=== PATIENT | female | born 1980 | race Hispanic/Latino ===

== ENCOUNTER 2022-08-25 15:41 | Emergency (ER) | payer BC, SELFPAY ==
[2022-08-25 15:56] VITALS: BP 151/95; PULSE 66; RESP 16; TEMP 36.2; O2SAT 99
--- NOTE | 2022-08-25 16:20 | ED.GENADULT ---
HPI - General Adult General Chief complaint: Ear Stated complaint: bilateral ear pain,congestion Time Seen by Provider: 08/25/22 16:20 Source: patient, RN notes reviewed and old records reviewed Mode of arrival: ambulatory Limitations: no limitations History of Present Illness HPI narrative: 42-year-old female presents to express care with cough, head congestion, bilateral ear pain since before . patient reports she is unsure she has had any fevers states that sinus drainage at times is blood-tinged yellow she has also had some postnasal drainage with cough. Patient states she has been taking Vicks cold and flu for her symptoms.Patient does take Zyrtec daily. Patient reports she has had COVID vaccinations and 1 booster and has not yet had flu shot. Patient reports she did have COVID November of 2021. MD complaint: bilateral ear pain, sinus drainage cough since before Onset (ago): day(s) (10) Treatments prior to arrival: other (Zyrtec) Related Data Allergies Allergy/AdvReac Type Severity Reaction Status Date / Time amoxicillin Allergy Unknown Verified 08/25/22 16:30 Review of Systems Review of Systems: CONSTITUTIONAL: malaise, chills, sweats, or fever. EYES: Denies visual changes, redness, or discharge. ENT: Reports rhinorrhea, congestion, sinus pain, otalgia no sore throat. CARDIOVASCULAR: Denies chest pain, palpitations, or edema. RESPIRATORY: Reports cough.? Denies dyspnea. GASTROINTESTINAL: Denies abdominal pain, nausea, vomiting, diarrhea SKIN: Denies rash or itching. MUSCULOSKELETAL: Denies myalgia. NEUROLOGIC: Denies headache. All systems reviewed & are unremarkable except as noted in HPI and below PMFSH Past Medical History Medical History (Updated 08/26/22 @ 00:01 by Colin Live) COVID-08 December 2021 Sinus problem Social History Social History (Updated 08/25/22 @ 16:48 by Odessa Castro NP) Smoking status: Never smoker Alcohol intake: current Alcohol use details: social Substance use type: does not use Gender identity (if verbalized by the patient): Female Comments At time of signature, agree with nursing past medical, surgical, social and family history. There is no relevant family history pertinent to the presenting complaint Exam Narrative: GENERAL: Well-appearing, well-nourished, and in no acute distress. HEAD: Normocephalic EYES: PERRLA, conjunctivae clear ENT: Nares clear, turbinates edematous and erythematous, yellow mucous discharge. Mucous membranes moist. TM pearly resendez with dull light reflex bilaterally; no tragal tenderness. Oropharynx erythematous without lesions. Tonsils not enlarged and without exudate, no drooling, no hoarseness, no trismus, uvula midline. NECK: Supple. No lymphadenopathy CHEST: Clear to auscultation, breath sounds equal. No wheezing, rhonchi, rales, or stridor. No respiratory distress, speaks in full sentences. cough noted with SAO2 99% on room air HEART: Regular rate and rhythm. No murmur heard. SKIN: Warm, dry, no rash. NEURO: Alert and oriented x3. PSYCH: Normal mood and affect Course Course Emergency Course: Patient is aware of diagnosis, understands and agrees to treatment plan.? Anticipatory guidance given.? Patient agrees to follow-up as directed and is aware of reasons to seek care at the emergency department. Portions of this record may have been created with voice recognition software Level of Care: Express Care Visit Vital Signs Vital signs: Vital Signs Temperature 36.2 C L 08/25/22 15:56 Pulse Rate 66 08/25/22 15:56 Respiratory Rate 16 08/25/22 15:56 Blood Pressure 151/95 H 08/25/22 15:56 Pulse Oximetry 99 08/25/22 15:56 Temperature 36.2 C L 08/25/22 15:56 Pulse Rate 66 08/25/22 15:56 Respiratory Rate 16 08/25/22 15:56 Blood Pressure 151/95 H 08/25/22 15:56 Pulse Oximetry 99 08/25/22 15:56 Reviewed Medical Decision Making Differential Di
== END 2022-08-25 16:40 | disposition home or self-care (01) ==
PROVIDERS: Emergency Provider Registered Nurse
DX: J32.9 Chronic sinusitis, unspecified (principal); Z86.16 Personal history of COVID-19
CPT/HCPCS: 99213; G0463

== ENCOUNTER 2023-03-14 07:57 | Outpatient (CLI) | payer BC, SELFPAY ==
[2023-03-14 10:51] LABS: Kit Draw Collected
== END 2023-03-14 07:58 | disposition home or self-care (01) ==
LOC: ANHGOSHLAB 08:01
PROVIDERS: PCP Family Medicine; Visit Provider Family Medicine
DX: Z00.00 Encounter for general adult medical examination without abnormal findings (principal); E66.9 Obesity, unspecified
CPT/HCPCS: 36415

== ENCOUNTER 2024-01-13 08:00 | Outpatient (CLI) | payer BC, SELFPAY ==
[2024-01-13 13:30] LABS: Alanine Aminotransferase 18 U/L (6-35); Albumin Level 4.3 g/dL (3.5-5.1); Alkaline Phosphatase 56 U/L (38-126); Anion Gap 6 mmol/L (4-12); Aspartate Amino Transferase 53 U/L (14-36); Bilirubin,Total 0.4 mg/dL (0.2-1.3); Blood Urea Nitrogen 27 mg/dL (7-17); Calcium 9.1 mg/dL (8.4-10.2); Carbon Dioxide 26 mmol/L (22-30); Chloride 108 mmol/L (98-107); Cholesterol 234 mg/dL (0-200); Estimated Glomerular Filt Rate > 60; Glucose 85 mg/dL (65-110); HDL Direct 47 mg/dL; Potassium 4.6 mmol/L (3.4-5.0); Sodium 140 mmol/L (137-145); Triglycerides 106 mg/dL (<150)
[2024-01-13 13:41] LABS: LDL Cholesterol Direct 152 mg/dL
[2024-01-13 15:26] LABS: Hemoglobin A1C 5.2 % (<5.7)
[2024-01-17 08:23] LABS: Thyroid Peroxidase Antibodies 1 IU/mL (<9)
== END 2024-01-13 08:01 | disposition home or self-care (01) ==
LOC: ANHGOSHLAB 08:02
PROVIDERS: PCP Family Medicine; Visit Provider Family Medicine
DX: R79.89 Other specified abnormal findings of blood chemistry (principal); E66.9 Obesity, unspecified; Z68.39 Body mass index [BMI] 39.0-39.9, adult
CPT/HCPCS: 36415; 80053; 80061; 83036; 84443; 86376

== ENCOUNTER 2024-03-20 07:55 | Outpatient (CLI) | payer BC, SELFPAY ==
[2024-03-20 19:05] LABS: Alanine Aminotransferase 17 U/L (6-35); Albumin Level 4.1 g/dL (3.5-5.1); Alkaline Phosphatase 57 U/L (38-126); Aspartate Amino Transferase 29 U/L (14-36); Bilirubin,Total 0.3 mg/dL (0.2-1.3)
[2024-03-20 19:44] LABS: Hepatitis B Surface Antigen Negative (Negative)
[2024-03-20 19:50] LABS: HAV RESULT Negative (Negative); Hepatitis B Core IgM Result Negative (Negative)
[2024-03-20 20:02] LABS: Hepatitis C Virus Antibody Negative (Negative)
== END 2024-03-20 07:56 | disposition home or self-care (01) ==
LOC: ANHGOSHLAB 07:57
PROVIDERS: PCP Family Medicine; Visit Provider Family Medicine
DX: R79.89 Other specified abnormal findings of blood chemistry (principal)
CPT/HCPCS: 36415; 80074; 80076

== ENCOUNTER 2024-07-10 13:28 | Outpatient (CLI) | payer BC, SELFPAY ==
--- NOTE | ~2024-07-10 | MM_ITS ---
EXAMINATION: MM screening maximus BI w helen HISTORY: Screening mammogram TECHNIQUE: Craniocaudal and mediolateral oblique 3-D tomosynthesis images were obtained and synthetic 2-D images were generated. CAD analysis was submitted and interpreted. COMPARISON: No prior mammogram is available for comparison at this institution. BREAST PARENCHYMAL COMPOSITION:Not Dense. The breasts are almost entirely fatty FINDINGS: No suspicious mass, calcification, or architectural distortion are identified in either dick ast to suggest malignancy. There has been no suspicious interval change. IMPRESSION: No mammographic evidence of malignancy. Recommend routine screening mammography in one year. BI-RADS Category 1: Negative Reviewed, dictated and finalized at location . 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
== END 2024-07-10 13:29 | disposition home or self-care (01) ==
LOC: MICIMG 13:28
PROVIDERS: PCP Family Medicine; Visit Provider Family Medicine
DX: Z12.31 Encounter for screening mammogram for malignant neoplasm of breast (principal)
CPT/HCPCS: 77063; 77067

== ENCOUNTER 2024-08-09 00:06 | Day surgery (SDC) | payer BC, SELFPAY ==
[2024-08-01 11:00] VITALS: BMI 35.4
[2024-08-09 06:20] VITALS: BP 139/94; PULSE 71; RESP 16; TEMP 36.2; O2SAT 97
[2024-08-09 06:28] LABS: BEDSIDEPREGUCG Negative (Negative)
[2024-08-09] MEDS: LACTATED RINGERS 1,000 ML 150 ML IV CONT (06:28)
--- NOTE | 2024-08-09 07:15 | P.PNAN_ITS ---
Anes - Initial Pre Proc Eval Procedure: Operation Date: 08/09/24 07:30 Proposed Procedures p Screening Colonoscopy - Naveen Weiner DO Date/Time: 08/09/24 07:15 Surgeon: Naveen Weiner DO Pre Op Diagnosis: Screening for malignant neoplasm of colon Patient Data Age: 44 Gender: F Height: 1.6 m Weight: 101.4 kg Last Vital Signs Temp 36.2 C L 08/09/24 06:20 Pulse 71 08/09/24 06:20 Resp 16 08/09/24 06:20 BP 139/94 H 08/09/24 06:20 Pulse Ox 97 08/09/24 06:20 O2 Del Method Room Air 08/09/24 06:20 Allergies Allergy/AdvReac Type Severity Reaction Status Date / Time amoxicillin Allergy Unknown Verified 08/09/24 06:18 Home Medications ?Medication ?Instructions ?Recorded ?Confirmed ?Type COLLAGEN See Rx Instructions PO .COMPLEX 03/10/23 08/09/24 History VIVISCAL PO DAILY Hair growth supplement 03/10/23 04/25/24 History cetirizine 10 mg tablet (All Day 10 mg PO DAILY 03/10/23 08/09/24 History Allergy (cetirizine)) ibuprofen 200 mg capsule 400 mg PO DAILY 03/10/23 08/01/24 History levocarnitine 500 mg tablet 500 mg PO DAILY 03/10/23 08/09/24 History (L-Carnitine) magnesium 250 mg tablet 250 mg PO BID 03/10/23 08/09/24 History multivitamin 1 tablet PO DAILY 03/10/23 08/09/24 History omega-3 fatty acids-fish oil 360 1 cap PO BID 03/10/23 08/09/24 History mg-1,200 mg capsule (Fish Oil) spironolactone 50 mg tablet 50 mg PO DAILY #90 tabs 04/25/24 08/09/24 Rx Laboratory Tests 08/09/24 06:20 POC Urine HCG, Qual Negative (Negative) Patient hx anesthesia problems: none Family hx anesthesia problems: none Results Review: All pre-operative results and documents have been reviewed as part of the pre-operative evaluation. COUNT INCLUDES [facility] Past Medical History Medical History Sinus problem COVID-08 December 2021 Family History Family History Father Alcoholism Diabetes mellitus Cancer throat Sibling Diabetes mellitus Sibling Acute myocardial infarction Social History Social History Smoking status: Never smoker Alcohol intake: never Substance use: never Substance use type: does not use Do You Feel Safe in your Home?: Yes Lack of Transportation: No Lack of Food: Never True Current Housing: I Have Housing Concerned About Future Housing: No Difficulty Paying Gas/Electric Bills: No Difficulty Paying for Meds: No Education: Associate Degree Difficulty w/ Childcare or Family Care: No Gender identity (if verbalized by the patient): Female Spiritual care concerns: No Anes - Eval Final PreProcedure Day of Procedure 08/09/24 07:15 Patient weight: obese Heart: regular rate and rhythm Lungs: clear to auscultation Airway: Mallampati scale class II Neurological: alert and oriented Last oral intake: >/= 8 hours ASA classification: II Emergent: no Anesthetic plan: proceed Anesthesia type and monitoring: general GIVS and standard monitoring Results Review: All pre-operative results and documents have been reviewed as part of the pre- operative evaluation. Informed Consent: The patient's anesthetic plan and its attendant risks and benefits were discussed with the patient/family/POA. Questions were solicited and answers provided to the satisfaction of the patient/family/POA.
--- NOTE | 2024-08-09 07:26 | PM.IMHP ---
H&P: HPI History of Present Illness Date/Time: 08/09/24 07:26 Chief Complaint: Screening for colorectal cancer Narrative: this is a 44-year-old woman who presents for her 1st colonoscopy. She denies any hematochezia or melena. She denies any family history of colon cancer. Review of Systems Review of Systems: All systems reviewed & are unremarkable except as noted in HPI and below Constitutional: Constitutional: Denies chills, Denies fever(s), Denies headache(s) and Denies weight loss Eyes: Eyes: Denies change in vision ENT: Denies dizziness, Denies headache(s), Denies neck mass and Denies throat swelling Cardiovascular: Cardiovascular: Denies chest pain, Denies lightheadedness and Denies dyspnea Respiratory: Respiratory: Denies cough, Denies dyspnea and Denies wheezing Gastrointestinal: Gastrointestinal: Denies abdominal pain, Denies change in bowel habits, Denies nausea and Denies vomiting Genitourinary: Genitourinary: Denies hematuria and Denies dysuria Musculoskeletal: Musculoskeletal: Reports as per HPI Integumentary/Breasts: Skin/Breast: Reports as per HPI Neurologic: Denies dizziness and Denies headache(s) Allergic/Immunologic: Allergic/Immunologic: Denies throat swelling and Denies wheezing PMF Past Medical History Medical History COVID-08 December 2021 Sinus problem Family History Family History Father Alcoholism Diabetes mellitus Cancer throat Sibling Diabetes mellitus Sibling Acute myocardial infarction Social History Social History Smoking status: Never smoker Alcohol intake: never Substance use: never Substance use type: does not use Do You Feel Safe in your Home?: Yes Lack of Transportation: No Lack of Food: Never True Current Housing: I Have Housing Concerned About Future Housing: No Difficulty Paying Gas/Electric Bills: No Difficulty Paying for Meds: No Education: Associate Degree Difficulty w/ Childcare or Family Care: No Gender identity (if verbalized by the patient): Female Spiritual care concerns: No Meds Home Medications and Allergies Home Medications ?Medication ?Instructions ?Recorded ?Confirmed ?Type COLLAGEN See Rx Instructions PO .COMPLEX 03/10/23 08/09/24 History VIVISCAL PO DAILY Hair growth supplement 03/10/23 04/25/24 History cetirizine 10 mg tablet (All Day 10 mg PO DAILY 03/10/23 08/09/24 History Allergy (cetirizine)) ibuprofen 200 mg capsule 400 mg PO DAILY 03/10/23 08/01/24 History levocarnitine 500 mg tablet 500 mg PO DAILY 03/10/23 08/09/24 History (L-Carnitine) magnesium 250 mg tablet 250 mg PO BID 03/10/23 08/09/24 History multivitamin 1 tablet PO DAILY 03/10/23 08/09/24 History omega-3 fatty acids-fish oil 360 1 cap PO BID 03/10/23 08/09/24 History mg-1,200 mg capsule (Fish Oil) spironolactone 50 mg tablet 50 mg PO DAILY #90 tabs 04/25/24 08/09/24 Rx Allergies Allergy/AdvReac Type Severity Reaction Status Date / Time amoxicillin Allergy Unknown Verified 08/09/24 06:18 Vital Signs Vital Signs - 24 hr 08/09/24 06:20 Temperature 97.2 F L Pulse Rate 71 Respiratory Rate 16 Blood Pressure 139/94 H Pulse Oximetry 97 Oxygen Delivery Room Air Exam Const: General: no acute distress and alert Orientation/consciousness: patient oriented x3 HENMT: Head: normocephalic and atraumatic Ears: hearing grossly normal bilaterally Face/Nose/Sinus: Normal nares present Mouth: Yes Normal oral and palatal mucosa present Eyes: Periorbital: periorbital findings normal Sclera: sclerae normal EOM: EOMs intact bilaterally Neck: Neck: normal visual inspection, no lymphadenopathy and trachea midline Chest: Chest palpation & inspection: normal inspection of the chest Resp: Effort & Inspection: normal respiratory effort Auscultation: clear to auscultation bilaterally Cardio: Jugular venous distension: no JVD Rate: regular rate Rhythm: regular rhythm Heart sounds: S1 normal heart sound present and S2 normal heart sound present Peripheral pulses: Peripheral pulses 2+ throughout GI: Inspection: normal to inspection GI Palp: Yes Soft to palpation, No Tenderness to palpation present (GI), No Guarding due to palpation present (GI) and No Rebound tenderness present Percussion: Yes normal to percussion Auscultation: normal bowel sounds : General: Yes no CVA tenderness Back/Spine/Pelvis: Back: no CVA tenderness Neuro: General: patient oriented x3, no focal motor deficits and CN's II-XI intact bilaterally Cognition (Neuro): normal cognition Speech: normal speech Motor exam (neuro): 5/5 motor strength present throughout Extrem: General: capillary refill normal and no clubbing, cyanosis or edema Assessment and Plan Assessment and plan (1) Screening for colorectal cancer: Code(s): Z12.11 - Encounter for screening for malignant neoplasm of colon; Z12.12 - Encounter for screening for malignant neoplasm of rectum Status: Acute Assessment and Plan: I have recommended colonoscopy. I have discussed the procedure, risks, benefits, and alternatives. Questions were answered. Patient is agreeable to proceed.
[2024-08-09 07:45] VITALS: BP 100/74; PULSE 63; RESP 16; O2SAT 98
[2024-08-09 07:55] VITALS: BP 87/32; PULSE 60; RESP 16; O2SAT 96
[2024-08-09 08:05] VITALS: BP 108/80; PULSE 60; RESP 16; O2SAT 100
== END 2024-08-09 08:14 | disposition home or self-care (01) ==
PROVIDERS: Anesthesiology; PCP Family Medicine; Visit Provider Surgery
PROC: 0DJD8ZZ Inspection of Lower Intestinal Tract, Via Natural or Artificial Opening Endoscopic (ICD-10-PCS; CPT 45378; principal; 2024-08-09 07:30)
DX: Z12.11 Encounter for screening for malignant neoplasm of colon (principal); E66.9 Obesity, unspecified; Z68.39 Body mass index [BMI] 39.0-39.9, adult; Z79.1 Long term (current) use of non-steroidal anti-inflammatories (NSAID); Z80.1 Family history of malignant neoplasm of trachea, bronchus and lung; Z82.49 Family history of ischemic heart disease and other diseases of the circulatory system
CPT/HCPCS: 45378; J2704; J7120

== ENCOUNTER 2025-05-17 08:06 | Outpatient (CLI) | payer BC, SELFPAY ==
--- OUTSIDE RECORDS SUMMARY | 2025-05-17 08:09 | XMS_ITS | Clinical Summary ---
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 Medications meloxicam (Mobic) 15 mg tabletIndications: Medial epicondylitis of elbow, right,Lateral epicondylitis of right elbow,Tendinopathy of elbow, right Take 1 Tablet (15 mg) by mouth daily. Take with a meal. 30 Tablet 1 0 Active Active Problems No known active problems Immunizations Immunization Administration Dates Next Due ([employer])(12 YR UP) COVID-19 VACCINE - EMERGENCY USE AUTHORIZATION, MRNA, [id number](PF) 30 MCG/0.3 ML IM SUSP 12/23/2020,12/01/2020 INFLUENZA VACCINE QUADRIVALENT 6 MOS UP PF IM Influenza Seasonal Unspecified Formulation IM Family History Medical History Relation Name Comments Diabetes Brother Hypertension Brother Cancer Father Relation Name Status Comments Brother Father Social History Tobacco Use Types Packs/Day Years Used Date Smoking Tobacco: Never Smokeless Tobacco: Never Alcohol Use Standard Drinks/Week Comments Yes 0 (1 standard drink = 0.6 oz pur e alcohol) MODERATE Comments No Sex and Gender Information Value Date Recorded Sex Assigned at Not on file 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 Gender Identity Not on file Sexual Orientation Not on file Last Filed Vital Signs Vital Sign Reading Time Taken Comments Blood Pressure 121/75 10/31/2019 8:07 AM CDT Pulse 72 10/31/2019 8:07 AM CDT Temperature 35.3 C (95.5 F) 06/04/2020 1:56 PM CDT Respiratory Rate - - Oxygen Saturation 95% 10/31/2019 8:07 AM CDT Inhaled Oxygen Concentration - - Weight 96.9 kg (213 lb 9.6 oz) 10/31/2019 8:07 A M CDT Height 160 cm (5' 3) 06/04/2020 1:56 PM CDT Body Mass Index 37.84 10/31/2019 8:07 AM CDT Plan of Treatment Health Maintenance Due Date Last Done Comments DTAP/TDAP/TD VACCINES (1 - Tdap) 1998 HEPATITIS B VACCINES (1 of 3 - 19+ 3-dose series) 1998 HPV/Cotest (21-29) 2000 CERVICAL CANCER SCREENING 2009 HPV/Cotest (30-65) 2009 PAP SMEAR 2009 BREAST CANCER SCREENING 2019 COLORECTAL SCREENING 2024 Colorectal Cancer Screening 2024 FIT-DNA Q 3 years 2024 FIT/FOBT Q 1 year 2024 Flex Sig/CT Colonography Q 5 years 2024 Preventative Visit- Commercial 08/22/2024 04/27/2019, 12/18/2018 INFLUENZA VACCINE (#1) 2025 0, 05/29/2019 COVID-19 Vaccine (3 - 2024-2 6 season) 2025 12/23/2020, 12/01/2020 HPV VACCINES Aged Out No longer eligi ble based on patient's age to complete [place] [address] BCBS BLUE ACCESS/TRUE BLUE PPO RX [facility] 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
[2025-05-17 18:10] LABS: Hematocrit 40.9 % (37.0-47.0); Hemoglobin 13.3 g/dL (12.0-15.0); Immature Granulocyte Percent A 0.4 % (0-0.5); Lymphocytes Absolute Auto 1.77 K/mm3 (0.9-3.2); Mean Corpuscular HGB Conc 32.5 g/dl (32-36); Mean Corpuscular Hemoglobin 31.5 pg (26-34); Mean Corpuscular Volume 96.9 fl (80-100); Nucleated Red Blood Cells Absolute Auto 0.000 K/mm3 (0.0-0.012); Nucleated Red Blood Cells Perc 0.0 % (0.0-0.2); Platelet Count Result 285 k/mm3 (150-375); Red Blood Count 4.22 M/mm3 (4.2-5.4); White Blood Count 10.2 K/mm3 (4.5-10.0)
[2025-05-17 18:13] LABS: Hemoglobin A1C 5.6 % (<5.7)
[2025-05-17 18:31] LABS: Alanine Aminotransferase 27 U/L (6-35); Albumin Level 4.2 g/dL (3.5-5.1); Alkaline Phosphatase 67 U/L (38-126); Anion Gap 6 mmol/L (4-12); Aspartate Amino Transferase 39 U/L (14-36); Bilirubin,Total 0.4 mg/dL (0.2-1.3); Blood Urea Nitrogen 14 mg/dL (7-17); Calcium 9.0 mg/dL (8.4-10.2); Carbon Dioxide 26 mmol/L (22-30); Chloride 102 mmol/L (98-107); Cholesterol 243 mg/dL (0-200); Estimated Glomerular Filt Rate > 60; Glucose 76 mg/dL (65-110); HDL Direct 45 mg/dL; Potassium 4.1 mmol/L (3.4-5.0); Sodium 134 mmol/L (137-145); Total Protein 7.7 g/dL (6.3-8.2); Triglycerides 159 mg/dL (<150)
[2025-05-17 19:08] LABS: Thyroid Stimulating Hormone 3.260 uIU/mL (0.465-4.680)
== END 2025-05-17 08:07 | disposition home or self-care (01) ==
LOC: ANHGOSHLAB 08:07
PROVIDERS: PCP Family Medicine; Visit Provider Student in an Organized Health Care Education/Training Program
DX: Z13.0 Encounter for screening for diseases of the blood and blood-forming organs and certain disorders involving the immune mechanism (principal); E66.9 Obesity, unspecified; Z68.39 Body mass index [BMI] 39.0-39.9, adult; Z83.3 Family history of diabetes mellitus
CPT/HCPCS: 36415; 80053; 80061; 83036; 84443; 85025